=== PATIENT | female | born 1970 | race American Indian/Alaskan Native ===

== ENCOUNTER 2020-11-23 08:00 | Outpatient (CLI) | payer OTHER ==
[~2020-11-23 08:00] MED LIST: AVELOX ABC PAC400 MG; GILTUSS LIQUID237 M1 PO
== END 2020-11-23 08:30 | disposition home or self-care (01) ==
LOC: PPH VACUNA 08:00
DX: Z23 Encounter for immunization (principal)

== ENCOUNTER 2021-01-01 14:40 | Outpatient (CLI) | payer OTHER | END 2021-01-01 15:00 | disposition home or self-care (01) | LOC: PPH VACUNA 14:40 | PROVIDERS: ATTEND Emergency Medicine Pediatric Emergency Medicine | DX: Z23 Encounter for immunization (principal) ==